=== PATIENT | female | born 1965 | race Caucasian/White ===

== ENCOUNTER 2020-05-14 10:06 | Emergency (ER) | payer MEDICAID ==
[~2020-05-14] VITALS: Ht 162.6 cm; Wt 66.2 kg
[2020-05-14 10:11] VITALS: BP 150/71
[2020-05-14] MEDS ORDERED: ONDANSETRON 4 MG/2 ML VIAL IVP ONE (10:25)
[2020-05-14] MEDS ORDERED: NACL 0.9% 1,000 ML IV ONE (10:25)
[2020-05-14 10:53] LABS: EOSINOPHILS % (AUTO) 0.2 % (0.0-4.0); HEMATOCRIT 40.2 % (36-48); HEMOGLOBIN 13.9 g/dL (12.0-16.0); LYMPHOCYTES # (AUTO) 1.2 K/uL (2.5-16.5); LYMPHOCYTES % (AUTO) 17.2 % (20.5-51.1); MEAN CORPUSCULAR HEMOGLOBIN 27 pg (27-31); MEAN CORPUSCULAR HGB CONC 35 g/dL (33-37); MEAN CORPUSCULAR VOLUME 76.4 fL (80-94); MONOCYTES # (AUTO) 0.4 K/uL (0.8-1.0); MONOCYTES % (AUTO) 6.3 % (1.7-9.3); NEUTROPHILS # (AUTO) 5.2 K/uL (1.8-7.7); NEUTROPHILS % (AUTO) 76.3 % (42.2-75.2); PLATELET COUNT (AUTO) 141 K/uL (140-450); RED BLOOD CELL COUNT(AUTO) 5.26 MIL/uL (4.20-5.40); RED CELL DISTRIBUTION WIDTH 14.7 % (11.6-13.7); WHITE BLOOD COUNT (AUTO) 6.8 K/uL (4.8-10.8)
[2020-05-14 11:26] LABS: ALBUMIN 3.5 g/dL (3.4-5.0); ANION GAP 19.6 (8-16); CARBON DIOXIDE 21.7 mmol/L (21-32); CREATININE 0.8 mg/dL (0.6-1.3); MAGNESIUM 1.4 mg/dL (1.8-2.4); POTASSIUM 4.3 mmol/L (3.5-5.1)
[2020-05-14] MEDS ORDERED: MAG SULF 2000 MG/WATER PREMIX 50 ML IV ONE (11:40)
[2020-05-14 11:45] LABS: TOTAL BILIRUBIN 0.5 mg/dL (0.0-1.0)
[2020-05-14 13:31] VITALS: BP 150/71
== END 2020-05-14 13:32 | disposition home or self-care (01) ==
LOC: MED 10:06
DX: U07.1 COVID-19 (principal); J12.82 Pneumonia due to coronavirus disease 2019; N39.0 Urinary tract infection, site not specified; E83.42 Hypomagnesemia; E11.9 Type 2 diabetes mellitus without complications; Z98.51 Tubal ligation status
CPT/HCPCS: 71045; 80053; 81002; 83735; 84484; 85025; 87086; 93005; 96361; 96365; 96375; 99285; J2405; J3475; U0003